=== PATIENT | male | born 1985 | race Caucasian/White ===

== ENCOUNTER 2017-10-28 23:25 | Inpatient (IN) | payer MEDICAID ==
[~2017-10-28] VITALS: Ht 175.3 cm; Wt 83.0 kg
[2017-10-28] MEDS ORDERED: Morphine Sulfate 2mg/ml Inj IVP ONE (23:45)
[2017-10-29 00:04] VITALS: BP 130/88
[2017-10-29 00:06] LABS: BASOPHILS % (AUTO) 2.5 % (0.0-2.0); EOSINOPHILS % (AUTO) 8.5 % (0.0-3.0); HEMATOCRIT 31.8 % (42.0-52.0); HEMOGLOBIN 10.8 G/DL (14.2-18.0); LYMPHOCYTES % (AUTO) 28.5 % (20.0-45.0); MEAN CORPUSCULAR VOLUME 89 FL (80-99); MONOCYTES % (AUTO) 11.6 % (1.0-10.0); NEUTROPHILS % (AUTO) 48.9 % (45.0-75.0); PLATELET COUNT 115 K/UL (150-450); RED BLOOD COUNT 3.57 M/UL (4.70-6.10); RED CELL DISTRIBUTION WIDTH 15.5 % (11.6-14.8); WHITE BLOOD COUNT 4.9 K/UL (4.8-10.8)
[2017-10-29 00:18] LABS: ANION GAP 6 mmol/L (5-15); BLOOD UREA NITROGEN 17 mg/dL (7-18); CALCIUM 7.9 MG/DL (8.5-10.1); CARBON DIOXIDE 30 MMOL/L (21-32); CHLORIDE 101 MMOL/L (98-107); CREATININE 1.1 MG/DL (0.55-1.30); SODIUM 137 MMOL/L (136-145)
[2017-10-29 00:21] LABS: INR 1.1 (0.9-1.1)
[2017-10-29 00:26] LABS: APPEARANCE,URINE CLEAR; BILIRUBIN, URINE NEGATIVE (NEGATIVE); COLOR,URINE PALE YELLOW; GLUCOSE, URINE (UA) NEGATIVE (NEGATIVE); KETONES,URINE NEGATIVE (NEGATIVE); LEUKOCYTE ESTERASE ,URINE NEGATIVE (NEGATIVE); NITRITE,URINE NEGATIVE (NEGATIVE); PH,URINE 6.5 (4.5-8.0); PROTEIN,URINE NEGATIVE (NEGATIVE); UROBILINOGEN,URINE NORMAL MG/DL (0.0-1.0)
[2017-10-29 00:29] LABS: ALANINE AMINOTRANSFERASE 45 U/L (12-78); ALBUMIN 3.8 G/DL (3.4-5.0); ALKALINE PHOSPHATASE 73 U/L (46-116); ASPARTATE AMINO TRANSFERASE 29 U/L (15-37); BILIRUBIN,TOTAL 0.1 MG/DL (0.2-1.0); CREATINE KINASE 187 U/L (26-308)
--- NOTE | 2017-10-29 00:42 | Emergency Room Report ---
History of Present Illness General Chief Complaint: Chest Pain Source: Patient, EMS Present Illness HPI The patient presents with chest pain. He feels pressure in his chest. 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 He is anticoagulated on Coumadin. He took some morphine. Apparently was discharged from another hospital within the last 48 hours to a rehabilitation facility. The pain is 9/10, constant, pressure, diffuse in his chest, not radiating to his arms. He feels some shortness of breath with this. No fevers, bleeding, cough, rashes, NVD, melena, dysuria or hematuria, joint pain, headache, dizziness, palpitations. No calf tenderness or edema. He is unsure what hospital he was recently at. Also will not say where valve was replaced (states it was recent also - though scar well healed). H/O seizures, last "long time ago". On valproic acid. H/O schizophrenia - on meds. No SI or HI. Allergies: Coded Allergies: No Known Allergies (Unverified , 10/28/17) Patient History Past Medical History: see triage record Past Surgical History: other - pulmonic valve replacement, Alonso rods Social History: Reports: smoking; Denies: drug use Social History Narrative rehab facility Reviewed Nursing Documentation: PMH: Agreed; PSxH: Agreed Nursing Documentation-PMH Hx Hypertension: Yes - Pulmonary valve problem Hx Diabetes: Yes History Of Psychiatric Problem: Yes - bipolar Hx Seizures: Yes Review of Systems All Other Systems: negative except mentioned in HPI Physical Exam Vital Signs Date Time Temp Pulse Resp B/P (MAP) Pulse Ox O2 Delivery O2 Flow Rate FiO2 10/28/17 23:27 98.7 85 18 146/94 98 Room Air 98.8 Sp02 EP Interpretation: reviewed, normal General Appearance: well appearing, no apparent distress, GCS 15 Head: normocephalic Eyes: bilateral eye normal inspection, bilateral eye PERRL ENT: moist mucus membranes - poor dentition Neck: supple Respiratory: lungs clear, normal breath sounds Cardiovascular #1: regular rate, rhythm, other - metalic click without murmur, edema - trace bilat Cardiovascular #2: 2+ radial (R) Gastrointestinal: normal inspection, normal bowel sounds, non tender, no mass, non-distended Musculoskeletal: back normal, gait/station normal, normal range of motion, no calf tenderness Neurologic: alert, oriented x3, grossly normal Psychiatric: no suicidal/homicidal ideation, other - john affect with some inappropriate thoughts Skin: normal inspection, warm/dry, other - well healed scars - back and sternotomy Medical Decision Making Diagnostic Impression: Primary Impression: Chest pain Qualified Codes: R07.9 - Chest pain, unspecified Additional Impressions: H/O pulmonic valve replacement Inadequate anticoagulation ER Course Patient presents with chest pain post pulmonic valve replacement. DDx: ischemia , valve dysfunction, PE, bronchitis, pericarditis, chest wall pain, opiate seeking behavior amongst others. Evaluation with EKG, CXR, labs. Treatment with aspirin and morphine. Patient high risk with mechanical valve and anticoagulation for embolic phenomena. Clinically, no evidence of PE. EKG without injury - bifascicular block. CXR with rods, no CHF (cannot see valve). Labs with negative troponin and normal CBC and CMP. Low calcium and INR. Patient improved with treatment. Needs cardiac observation and probable echocardiogram. Admit tele. Laboratory Tests Test 10/28/17 00:01 10/29/17 00:16 White Blood Count 4.9 K/UL (4.8-10.8) Red Blood Count 3.57 M/UL (4.70-6.10) L Hemoglobin 10.8 G/DL (14.2-18.0) L Hematocrit 31.8 % (42.0-52.0) L Mean Corpuscular Volume 89 FL (80-99) Mean Corpuscular Hemoglobin 30.2 PG (27.0-31.0) Mean Corpuscular Hemoglobin Concent 33.9 G/DL (32.0-36.0) Red Cell Distribution Width 15.5 % (11.6-14.8) H Platelet Count 115 K/UL (150-450) L Mean Platelet Volume 9.0 FL (6.5-10.1) Neutrophils (%) (Auto) 48.9 % (45.0-75.0) Lymphocytes (%) (Auto) 28.5 % (20.0-45.0) Monocytes (%) (Auto) 11.6 % (1.0-10.0) H Eosinophils (%) (Auto) 8.5 % (0.0-3.0) H Basophils (%) (Auto) 2.5 % (0.0-2.0) H Prothrombin Time 12.0 SEC (9.30-11.50) H Prothrombin Time INR 1.1 (0.9-1.1) PTT 22 SEC (23-33) L Sodium Level 137 MMOL/L (136-145) Potassium Level 4.0 MMOL/L (3.5-5.1) Chloride Level 101 MMOL/L (98-107) Carbon Dioxide Level 30 MMOL/L (21-32) Anion Gap 6 mmol/L (5-15) Blood Urea Nitrogen 17 mg/dL (7-18) Creatinine 1.1 MG/DL (0.55-1.30) Estimate Glomerular Filtration Rate > 60 mL/min (>60) Glucose Level 91 MG/DL (74-106) Calcium Level 7.9 MG/DL (8.5-10.1) L Total Bilirubin 0.1 MG/DL (0.2-1.0) L Aspartate Amino Transferase (AST) 29 U/L (15-37) Alanine Aminotransferase (ALT) 45 U/L (12-78) Alkaline Phosphatase 73 U/L (46-116) Total Creatine Kinase 187 U/L (26-308) Troponin I 0.034 ng/mL (0.000-0.056) Pro-B-Type Natriuretic Peptide 150 pg/mL (0-125) H Total Protein 7.7 G/DL (6.4-8.2) Albumin 3.8 G/DL (3.4-5.0) Globulin 3.9 g/dL Albumin/Globulin Ratio 1.0 (1.0-2.7) Urine Color Pale yellow Urine Appearance Clear Urine pH 6.5 (4.5-8.0) Urine Specific [place] 1.015 (1.005-1.035) Urine Protein Negative (NEGATIVE) Urine Glucose (UA) Negative (NEGATIVE) Urine Ketones Negative (NEGATIVE) Urine Occult Blood Negative (NEGATIVE) Urine Nitrite Negative (NEGATIVE) Urine Bilirubin Negative (NEGATIVE) Urine Urobilinogen Normal MG/DL (0.0-1.0) Urine Leukocyte Esterase Negative (NEGATIVE) Urine Opiates Screen Negative (NEGATIVE) Urine Barbiturates Screen Negative (NEGATIVE) Phencyclidine (PCP) Screen Negative (NEGATIVE) Urine Amphetamines Screen Negative (NEGATIVE) Urine Benzodiazepines Screen Negative (NEGATIVE) Urine Cocaine Screen Negative (NEGATIVE) Urine Marijuana (THC) Screen Negative (NEGATIVE) EKG Diagnostic Results Rate: normal Rhythm: NSR ST Segments: no acute changes - History AV block, left axis deviation, right bundle-branch block Rhythm Strip Diag. Results EP Interpretation: yes Rhythm: NSR, no PVC's, no ectopy Chest X-Ray Diagnostic Results Chest X-Ray Diagnostic Results : Chest X-Ray Ordered: Yes # of Views/Limited/Complete: 1 View Indication: Chest Pain EP Interpretation: Yes Interpretation: no consolidation, no effusion, no pneumothorax, other - Alonso rods, pulmonic valve is not well visualized. Impression: Other Electronically Signed by: Electronically signed by Chip Rosa MD Last Vital Signs Date Time Temp Pulse Resp B/P (MAP) Pulse Ox O2 Delivery O2 Flow Rate FiO2 10/29/17 00:22 98.8 10/29/17 00:06 77 14 Room Air 10/29/17 00:04 130/88 96 Status: improved Disposition: ADMITTED INPATIENT Condition: Serious Referrals: NOT CHOSEN NATHANIEL/,REFERRING (PCP) Chip Rosa M.D. Oct 29, 2017 00:42
[2017-10-29] MEDS ORDERED: DEPAKOTE250 MG PO (00:44)
[2017-10-29] MEDS ORDERED: RISPERDAL0.25 MG ORAL (00:44)
[2017-10-29] MEDS ORDERED: WARFARIN SODIUM1 MG ORAL (00:44)
[2017-10-29] MEDS ORDERED: BUSPAR10 MG ORAL (00:44)
[2017-10-29] MEDS ORDERED: SYNTHROID25 MCG ORAL (00:44)
[2017-10-29 01:05] VITALS: BP 130/88
[2017-10-29] MEDS ORDERED: Morphine Sulfate 2mg/ml Inj IVP PRN (02:15)
[2017-10-29] MEDS ORDERED: HYDROcodone/Acetamin 10/325 tab ORAL PRN (02:15)
[2017-10-29] MEDS ORDERED: NovoLOG Insulin Flexpen SUBQ SCH (06:30)
[2017-10-29] MEDS ORDERED: BusPIRone 5mg Tab ORAL SCH (09:00)
[2017-10-29] MEDS ORDERED: Depakote 500mg tab ORAL SCH (09:00)
--- NOTE | 2017-10-29 09:50 | Diagnostic Imaging Report ---
Indication: Chest pain Technique: One view of the chest Comparison: none Findings: The lungs and pleural spaces are clear. Heart is borderline enlarged. There are median sternotomy sutures. There is evidence of prior spinal fusion. Impression: No acute process. Findings as noted This agrees with the preliminary interpretation provided by the emergency room physician
--- NOTE | 2017-10-30 09:34 | History & Physical ---
History and Physical History & Physicial patient left Marisol Amor NP Oct 30, 2017 09:34
--- NOTE | 2017-10-30 09:40 | Discharge Summary ---
Discharge Summary Hospital Course Date of Admission Oct 28, 2017 at 23:52 Date of Discharge Oct 29, 2017 at 10:15 Admitting Diagnosis CHEST PAIN HPI Chip Perry is a 32 year old male who was admitted on Oct 28, 2017 at 23:52 for Chest Pain Hospital Course [id number] Discharge Condition Upon Discharge: stable Discharge Disposition Patient left Marisol Amor NP Oct 30, 2017 09:40
--- NOTE | 2017-10-31 00:30 | Discharge Summary 2 SIG ---
DATE OF ADMISSION: 10/28/2017 DATE OF DISCHARGE: 10/29/2017 BRIEF HOSPITAL COURSE: The patient is a 32-year-old male, who presented to ED complaining of chest pain. The patient has history of pulmonic valve replacement and has a mechanical valve. He is anticoagulated, on Coumadin. He apparently was discharged from another hospital and was discharged to a rehabilitation facility. His pain was 9/10, constant, and pressure on the chest radiating to the arms. On evaluation at ED, EKG was without injury. Chest x-ray showed evidence of prior median sternotomy with sutures. Initial troponin was 0.034. He was admitted to telemetry and orders were given, however, the patient left against medical advice upon transfer to floor. IMPRESSION: 1. Chest pain. 2. History of pulmonic valve replacement. 3. Inadequate anticoagulation, INR 1.1. DISPOSITION: The patient left AMA. David Galvan M.D. I have been assigned to dictate discharge summary on this account and I was not involved in the patient's management. Marisol Kelly N.P. DR: Velvet JOB#: [id number] CC:
== END 2017-10-29 10:15 | disposition left against medical advice (07) | DRG 203 ==
LOC: EDBD 23:25 → EMR 23:43 → 2E 23:52 → EDBEDREQ 10-29 00:51 → 2E 10-29 02:42
DX: R07.9 Chest pain, unspecified (principal); R79.1 Abnormal coagulation profile; Z95.2 Presence of prosthetic heart valve; Z79.01 Long term (current) use of anticoagulants; Z53.21 Procedure and treatment not carried out due to patient leaving prior to being seen by health care provider
CPT/HCPCS: 36415; 71045; 80053; 80307; 81003; 82550; 82962; 83880; 84484; 85025; 85610; 85730; 87081; 93005; 99285; J1815; J2405

== ENCOUNTER 2017-11-02 15:43 | Emergency (ER) | payer MEDICAID ==
[~2017-11-02] VITALS: Ht 175.3 cm; Wt 83.0 kg
[~2017-11-02 15:43] MED LIST: BUSPAR10 MG ORAL; DEPAKOTE250 MG PO; RISPERDAL0.25 MG ORAL; SYNTHROID25 MCG ORAL; WARFARIN SODIUM1 MG ORAL
[2017-11-02 15:51] VITALS: BP 122/82
[2017-11-02] MEDS ORDERED: Aspirin Baby 81mg ORAL ONE (16:30)
--- NOTE | 2017-11-02 16:58 | Diagnostic Imaging Report ---
Indication: Shortness of breath Technique: One view of the chest Comparison: 10/28/2017 Findings: Lungs and pleural spaces are clear. Spinal fusion hardware, evidence of prior CABG again demonstrated. The heart is enlarged. No significant change Impression: No acute process
[2017-11-02 17:56] LABS: ANION GAP 12 mmol/L (5-15); BLOOD UREA NITROGEN 19 mg/dL (7-18); CALCIUM 8.2 MG/DL (8.5-10.1); CARBON DIOXIDE 25 MMOL/L (21-32); CHLORIDE 105 MMOL/L (98-107); SODIUM 142 MMOL/L (136-145)
[2017-11-02 18:22] LABS: ALANINE AMINOTRANSFERASE 45 U/L (12-78); ALBUMIN 3.7 G/DL (3.4-5.0); ALBUMIN/GLOBULIN RATIO 1.1 (1.0-2.7); ALKALINE PHOSPHATASE 71 U/L (46-116); ASPARTATE AMINO TRANSFERASE 31 U/L (15-37); BILIRUBIN,TOTAL 0.2 MG/DL (0.2-1.0); CKMB 1.1 NG/ML (0.0-3.6); CREATINE KINASE 126 U/L (26-308)
[2017-11-02 18:27] LABS: BASOPHILS % (AUTO) 1.6 % (0.0-2.0); HEMATOCRIT 32.6 % (42.0-52.0); LYMPHOCYTES % (AUTO) 31.4 % (20.0-45.0); MEAN CORPUSCULAR VOLUME 90 FL (80-99); MONOCYTES % (AUTO) 8.9 % (1.0-10.0); NEUTROPHILS % (AUTO) 53.2 % (45.0-75.0); PLATELET COUNT 141 K/UL (150-450); RED BLOOD COUNT 3.64 M/UL (4.70-6.10); RED CELL DISTRIBUTION WIDTH 15.2 % (11.6-14.8); WHITE BLOOD COUNT 4.8 K/UL (4.8-10.8)
[2017-11-02 18:40] LABS: INR 1.3 (0.9-1.1)
[2017-11-02 18:51] VITALS: BP 136/86
[2017-11-02 18:55] VITALS: BP 136/86
[2017-11-02] MEDS ORDERED: Enoxaparin 80mg Inj SUBQ ONE (19:00)
--- NOTE | 2017-11-02 23:02 | Emergency Room Report ---
History of Present Illness General Chief Complaint: Chest Pain Source: Patient, EMS Present Illness HPI Patient is a 32-year-old male who presented after increased left-sided chest pain. Patient prior history of valve replacement surgery. He had been anticoagulated with Coumadin. Patient reports having sharp pain. He denies any fever or cough. History is limited by patient's poor historian Allergies: Coded Allergies: No Known Allergies (Unverified , 10/28/17) Patient History Reviewed Nursing Documentation: PMH: Agreed; PSxH: Agreed Nursing Documentation-PMH Past Medical History: No History, Except For Hx Cardiac Problems: Yes - mitral valve prolapse, stemi Hx Hypertension: Yes - Pulmonary valve problem Hx Diabetes: Yes Hx Cancer: No Hx Gastrointestinal Problems: No Hx Neurological Problems: Yes Hx Seizures: Yes Review of Systems All Other Systems: limited - by mental status Physical Exam Vital Signs Date Time Temp Pulse Resp B/P (MAP) Pulse Ox O2 Delivery O2 Flow Rate FiO2 11/02/17 15:38 98.7 84 20 136/91 100 Room Air 98.8 Sp02 EP Interpretation: reviewed, normal General Appearance: normal inspection, well appearing, no apparent distress, alert, GCS 15 Head: atraumatic ENT: normal ENT inspection, hearing grossly normal, normal voice Neck: normal inspection, full range of motion, supple, no bony tend Respiratory: normal inspection, lungs clear, normal breath sounds, no respiratory distress, no retraction, no wheezing Cardiovascular #1: regular rate, rhythm, no edema Gastrointestinal: normal inspection, normal bowel sounds, non tender, soft, no guarding, no hernia Genitourinary: no CVA tenderness Musculoskeletal: normal inspection, back normal, normal range of motion Neurologic: normal inspection, alert, oriented x3, responsive, fine chemicals operator III-XII nml as tested, speech normal Psychiatric: normal inspection, judgement/insight normal, mood/affect normal Skin: normal inspection, normal color, no rash Medical Decision Making Diagnostic Impression: Primary Impression: Chest pain Additional Impression: Valvular heart disease ER Course Patient presented for chest pain.Differential diagnosis included but was not limited to acute coronary syndrome, pulmonary embolism, pneumonia, aortic dissection, shingles, pneumothorax, aortic dissection, esophageal rupture, pericarditis. EKG interpreted by me showed normal sinus rhythm with a rate of 74 with slight QT prolongation. The patient was given aspirin by EMS. Lovenox was ordered however patient refused this medication. The patient said he would take his Coumadin at home.The patient is advised to follow up with primary care doctor in 1-2 days. Patient is advised to return if any worsening condition or if any changes in status that are concerning. This report is dictated with [employer] die cast supervisor software which may occasionally lead to discrepancies related to use of this software. Laboratory Tests Test 11/02/17 16:40 11/02/17 18:08 Sodium Level 142 MMOL/L (136-145) Potassium Level 4.0 MMOL/L (3.5-5.1) Chloride Level 105 MMOL/L (98-107) Carbon Dioxide Level 25 MMOL/L (21-32) Anion Gap 12 mmol/L (5-15) Blood Urea Nitrogen 19 mg/dL (7-18) H Creatinine 1.0 MG/DL (0.55-1.30) Estimate Glomerular Filtration Rate > 60 mL/min (>60) Glucose Level 91 MG/DL (74-106) Calcium Level 8.2 MG/DL (8.5-10.1) L Total Bilirubin 0.2 MG/DL (0.2-1.0) Aspartate Amino Transferase (AST) 31 U/L (15-37) Alanine Aminotransferase (ALT) 45 U/L (12-78) Alkaline Phosphatase 71 U/L (46-116) Total Creatine Kinase 126 U/L (26-308) Creatine Kinase MB 1.1 NG/ML (0.0-3.6) Creatine Kinase MB Relative Index 0.8 Troponin I 0.033 ng/mL (0.000-0.056) Total Protein 7.1 G/DL (6.4-8.2) Albumin 3.7 G/DL (3.4-5.0) Globulin 3.4 g/dL Albumin/Globulin Ratio 1.1 (1.0-2.7) White Blood Count 4.8 K/UL (4.8-10.8) Red Blood Count 3.64 M/UL (4.70-6.10) L Hemoglobin 11.0 G/DL (14.2-18.0) L Hematocrit 32.6 % (42.0-52.0) L Mean Corpuscular Volume 90 FL (80-99) Mean Corpuscular Hemoglobin 30.1 PG (27.0-31.0) Mean Corpuscular Hemoglobin Concent 33.6 G/DL (32.0-36.0) Red Cell Distribution Width 15.2 % (11.6-14.8) H Platelet Count 141 K/UL (150-450) L Mean Platelet Volume 8.7 FL (6.5-10.1) Neutrophils (%) (Auto) 53.2 % (45.0-75.0) Lymphocytes (%) (Auto) 31.4 % (20.0-45.0) Monocytes (%) (Auto) 8.9 % (1.0-10.0) Eosinophils (%) (Auto) 5.0 % (0.0-3.0) H Basophils (%) (Auto) 1.6 % (0.0-2.0) Prothrombin Time 13.3 SEC (9.30-11.50) H Prothrombin Time INR 1.3 (0.9-1.1) H PTT 22 SEC (23-33) L EKG Diagnostic Results Rate: normal Rhythm: NSR ST Segments: no acute changes Last Vital Signs Date Time Temp Pulse Resp B/P (MAP) Pulse Ox O2 Delivery O2 Flow Rate FiO2 11/02/17 18:55 98.8 77 17 136/86 100 Room Air 98.8 Status: improved Disposition: HOME, SELF-CARE Condition: Stable Referrals: NOT CHOSEN [facility]/,REFERRING (PCP) Patient Instructions: Nonspecific Chest Pain Rahul Murray Nov 02, 2017 23:02
--- NOTE | 2017-11-03 16:36 | Cardiology Report ---
APPROVED REPORT EKG Measurement Heart [id number] [id number] Sinus rhythm with 1st degree AV block Right bundle branch block Cannot rule out Inferior infarct, age undetermined Abnormal ECG
== END 2017-11-02 19:12 | disposition home or self-care (01) ==
LOC: EDBD 15:43 → EMR 16:00
DX: R07.9 Chest pain, unspecified (principal); I38 Endocarditis, valve unspecified; E11.9 Type 2 diabetes mellitus without complications
CPT/HCPCS: 36415; 71045; 80053; 82550; 82553; 84484; 85025; 85610; 85730; 93005; 99284